=== PATIENT | female | born 1960 | race Caucasian/White ===

== ENCOUNTER 2018-09-27 23:19 | Emergency (ER) | payer BC ==
--- NOTE | 2018-09-27 23:39 | ER Document Report ---
ED General - General Stated Complaint: POSSIBLE SNAKE BITE Time Seen by Provider: 09/27/18 23:37 Notes: Patient is a 58-year-old female who presents with complaint of a snake bite to the left ankle. Patient says it happened just prior to arrival to the ED. They did bring a picture of the snake. It was an adult copperhead per the picture that they brought. Patient complains of pain in the ankle and foot only. No pain into the leg. Patient has no further complaints this time. She was given fentanyl for her ankle pain by the paramedics. No vomiting. No fever. No dizziness. Past Medical History - Social History Smoking Status: Unknown if Ever Smoked Frequency of alcohol use: None Drug Abuse: None Family History: Reviewed & Not Pertinent Review of Systems - Review of Systems Notes: My Normal Review Basic REVIEW OF SYSTEMS: CONSTITUTIONAL : Denies fever, chills, or sweats. Denies recent illness. RESPIRATORY: Denies cough, cold, or chest congestion. Denies shortness of breath, difficulty breathing, or wheezing. GASTROINTESTINAL: Denies abdominal pain. Denies nausea, vomiting, or diarrhea. MUSCULOSKELETAL: Left ankle and foot pain. SKIN: Denies rash or skin lesions. NEUROLOGICAL: Denies altered mental status or loss of consciousness. Denies headache. Denies weakness or paralysis or loss of use of either side. Denies problems with gait or speech. Denies sensory or motor loss. ALL OTHER SYSTEMS REVIEWED AND NEGATIVE. Physical Exam - Vital signs Vitals: Resp Pulse Ox 17 100 09/27/18 23:46 09/27/18 23:46 - Notes Notes: General Appearance: Well nourished, alert, cooperative, no acute distress, mild to moderate obvious discomfort. Vitals: reviewed, See vital signs table. Eyes: PERRL, EOMI, Conjuctiva clear Mouth: No decreasd moisture Lungs: No wheezing, No rales, No rhonci, No accessory muscle use, good air exchange bilaterally. Heart: Normal rate, Regular rythm, No murmur, no rub Extremities: good pulses in all extremities, patient has 2 puncture wounds on the lateral aspect of the left ankle. She has some localized swelling to the left ankle and over the dorsum of the foot. No swelling or discoloration going into the leg itself. Good capillary refill. Good dorsal pulses. Skin: warm, dry, appropriate color, no rash Neuro: speech clear, oriented x 3, normal affect, responds appropriately to questions. Course - Re-evaluation Re-evalutation: 09/27/18 23:38 Patient does have a snake bite on the left lateral malleolus of the left ankle. They do a picture of the snake. It is a copperhead. The swelling is only a small amount swelling that is just localized to the lateral aspect of the left ankle. There is no swelling into the leg. No spreading erythema. At this time I have put her foot on blankets. She looks very comfortable. She received all the pain medicine from the paramedics and says she does not need for the pain medicine at this time. Currently I do not feel that the benefits of antivenom outweigh the risks of potential side effects such as anaphylaxis from antivenom administration. Currently we will continue to monitor her leg and keep it elevated. We will watch her for several hours to make sure that she does not develop increasing swelling. Patient is agreeable with plan. 09/28/18 01:25 On reevaluation the swelling is not progressed. Still localized mainly to the lateral malleolus. Leg does not appear to be swollen. She is having some recurrent pain therefore have ordered some pain medicine for her. 09/28/18 02:52 Patient's pain is well controlled. Her calf measurements have remained unchanged. The swelling in her foot and ankle is actually gone down since her last evaluation. Patient looks and feels well. 09/28/18 06:57 I did discuss the case with poison control at the 6-hour point of observation. They recommended observation for 8 hours from the time the bite. Is not been 8 hours since the time of bite. Patient continues to does have localized swelling to the foot and ankle. No swelling into the leg. She will have some pain that shoots up her leg when she moves her foot but otherwise no swelling and no discoloration to the leg. I talked the patient about risks and benefits antivenom. I recommended incentive enemas I did not feel that the risk of anaphylaxis it was worth the benefit for just the small amount of localized swelling being that she was not having swelling that was increasing in size and it was not progressing up the leg. I did discuss with poison control and agreeable as well. This is long as patient is able to have pain control and that the swelling was not increasing to the leg and her calf measurements have been the same she can be discharged home. Calf measurements have remained the same. I did give her crutches. I did talk about pain control did offer to admit her for pain control. Patient says she would rather try to stay at home first as opposed to being admitted for pain control. I informed her that she may still have some slight increase in swelling over the next 24 hours; however, if the swelling started to go into the lower leg and extend beyond the ankle then she must return to the ER immediately. I informed her to keep her leg elevated above the waist. I did have Poison Control Center me a copy of their snake bite discharge instructions. I did give this to the patient in conjunct ion with the discharge instructions like typed up. Patient is agreeable plan is that she would return if she had any worsening of her pain, uncontrolled pain, increasing swelling, fevers, or if she felt like she is worsening in any way. Dictation of this chart was performed using voice recognition software; therefore, there may be some unintended grammatical errors. - Vital Signs Vital signs: Temp Pulse Resp BP Pulse Ox 98.2 F 12 149/83 H 100 09/28/18 05:06 09/28/18 05:03 09/28/18 05:06 09/28/18 05:03 - Laboratory Result Diagrams: 09/27/18 23:05 09/27/18 23:05 Laboratory results interpreted by me: 09/27/18 09/27/18 23:05 23:05 Hgb 11.4 L Hct 34.5 L RDW 17.4 H Calcium 8.3 L Alkaline Phosphatase 141 H Discharge - Discharge Clinical Impression: Snake bite Qualifiers: Encounter type: initial encounter Qualified Code(s): W59.11XA - Bitten by nonvenomous snake, initial encounter Condition: Good Disposition: HOME, SELF-CARE Instructions: Oral Narcotic Medication ([facility]) Additional Instructions: Treatment for the snakebite going forward is pain control with oral pain medicine as well as keeping her foot elevated. Please stay in bed as much as possible or on a couch and keep her foot elevated above the level of your waist. Please return to ER immediately if you have increasing swelling going into the leg, is intractable pain, or if you feel like you are worsening in any way. Also provided a set of care instructions that have been provided to us by the Poison Control Center. It also mentions comes to watch for. Please make sure you use her crutches to your not applying weight on your foot. I did give the poison control center your phone number and they will be calling you to check up on you later today. Prescriptions: Oxycodone HCl [Oxy-Ir 5 mg Tablet] 5 mg PO Q4HP PRN #20 tab PRN Reason: Forms: Return to Work
[2018-09-27 23:59] LABS: ABSOLUTE EOSINOPHILS # (AUTO) 0.1 10^3/uL (0.0-0.6); ABSOLUTE LYMPHOCYTES (AUTO) 1.7 10^3/uL (0.5-4.7); ABSOLUTE MONOCYTES (AUTO) 0.5 10^3/uL (0.1-1.4); BASOPHILS % (AUTO) 0.8 % (0-2); EOSINOPHILS % (AUTO) 2.2 % (0-6); HEMATOCRIT 34.5 % (36.0-47.0); HEMOGLOBIN 11.4 g/dL (12.0-15.5); LYMPHOCYTES % (AUTO) 38.5 % (13-45); MEAN CORPUSCULAR HEMOGLOBIN 27.4 pg (27.0-33.4); MEAN CORPUSCULAR HGB CONC 32.9 g/dL (32.0-36.0); MEAN CORPUSCULAR VOLUME 83 fl (80-97); MONOCYTES % (AUTO) 11.2 % (3-13); PLATELET COUNT 287 10^3/uL (150-450); RED BLOOD COUNT 4.15 10^6/uL (3.72-5.28); RED CELL DISTRIBUTION WIDTH 17.4 % (11.5-14.0); SEGMENTED NEUTROPHILS % (AUTO) 47.3 % (42-78); TOTAL CELLS COUNTED % (AUTO) 100 %; WHITE BLOOD COUNT 4.3 10^3/uL (4.0-10.5)
[2018-09-28 00:03] LABS: INTERNATIONAL RATION (INR) 0.89
[2018-09-28 00:04] LABS: FIBRINOGEN 360 mg/dL (209-497)
[2018-09-28 00:13] LABS: ALANINE AMINOTRANSFERASE 26 U/L (9-52); ALBUMIN 4.1 g/dL (3.5-5.0); ALKALINE PHOSPHATASE 141 U/L (38-126); ANION GAP 7 (5-19); ASPARTATE AMINO TRANSFERASE 29 U/L (14-36); BILIRUBIN,DIRECT 0.2 mg/dL (0.0-0.4); BILIRUBIN,TOTAL 0.2 mg/dL (0.2-1.3); BLOOD UREA NITROGEN 13 mg/dL (7-20); CALCIUM 8.3 mg/dL (8.4-10.2); CARBON DIOXIDE 28 mmol/L (22-30); CHLORIDE 104 mmol/L (98-107); GLUCOSE 92 mg/dL (75-110); POTASSIUM 4.3 mmol/L (3.6-5.0); SODIUM 139.1 mmol/L (137-145); TOTAL PROTEIN 6.6 g/dL (6.3-8.2)
[2018-09-28 00:16] LABS: PARTIAL THROMBOPLASTIN TIME 29.3 SEC (23.5-35.8)
[2018-09-28] MEDS ORDERED: HYDROMORPHONE HCL INJ/PF 2 MG/ML AMPULE IV ONE ×2 (00:51→04:45)
[2018-09-28] MEDS ORDERED: OXYCODONE-ACETAMINOPHEN 5-325 MG TABLET PO ONE (04:53)
[2018-09-28] MEDS ORDERED: HYDROCODONE/ACETAMINOPHEN 5-325 MG (6 TAB/ER DISP) PO PRN (06:32)
[2018-09-28 06:35] VITALS: BP 149/83
== END 2018-09-28 07:05 | disposition home or self-care (01) ==
LOC: ER 23:19
DX: T63.091A Toxic effect of venom of other snake, accidental (unintentional), initial encounter (principal); M25.572 Pain in left ankle and joints of left foot; M79.672 Pain in left foot; M25.472 Effusion, left ankle; M79.89 Other specified soft tissue disorders
CPT/HCPCS: 99283; 96374; 36415; 85025; 85384; 85610; 85730; 80053; J1170

== ENCOUNTER 2019-03-06 09:03 | Day surgery (SDC) | payer BC ==
[~2019-03-06 09:03] MED LIST: PROPOFOL INJ 200 MG/20 ML VIAL IV ONE
[2019-03-06 10:54] VITALS: BP 127/73
--- NOTE | 2019-03-06 13:50 | Operative Report ---
Operative Report DATE OF SURGERY: 03/06/19 Operative Report: The risks benefits and alternatives of the procedure explained to the patient in detail and informed consent is obtained.A GIF Olympus video scope was inserted into the patient's mouth and hypopharynx, the esophagus is identified intubated and insufflated, the scope was then advanced through the esophagus stomach and duodenum, retroflexion maneuver is done, the esophagus stomach and first and second portions of the duodenum examined PREOPERATIVE DIAGNOSIS: Dysphagia POSTOPERATIVE DIAGNOSIS: Schatzki's ring status post breakage. Hiatal hernia. Gastritis status post biopsy rule out Helicobacter pylori OPERATION: EGD with biopsy SURGEON: CHANDA OCAMPO ANESTHESIA: LMAC TISSUE REMOVED OR ALTERED: As noted above. COMPLICATIONS: None. ESTIMATED BLOOD LOSS: None. INTRAOPERATIVE FINDINGS: As noted above. PROCEDURE: Patient tolerated the procedure well. No immediate postprocedure complications are noted. Patient is discharged in good condition. Discharge date 03/06/2019. Discharge diet: Regular. Discharge activity: Regular. 2 to 3-week follow-up to discuss findings. Patient is instructed to call the office or proceed to the emergency room should there be any further problems or questions. Wait on the pathology.
== END 2019-03-06 11:00 | disposition home or self-care (01) ==
LOC: END 09:03
PROVIDERS: ATTEND Internal Medicine Gastroenterology
DX: K22.2 Esophageal obstruction (principal); K44.9 Diaphragmatic hernia without obstruction or gangrene; K29.50 Unspecified chronic gastritis without bleeding; K20.9 Esophagitis, unspecified; Z87.891 Personal history of nicotine dependence; Z79.899 Other long term (current) drug therapy; E07.9 Disorder of thyroid, unspecified; G89.4 Chronic pain syndrome; D70.8 Other neutropenia; M35.9 Systemic involvement of connective tissue, unspecified; Q89.2 Congenital malformations of other endocrine glands
CPT/HCPCS: 43239; 88342 ×2; 88305 ×2; 00731; J2704; 731

== ENCOUNTER → 2019-03-17 | Outpatient (CLI) | payer BC ==
--- NOTE | 2019-03-17 14:12 | WOMENS IMAGING REPORT ---
EXAM DESCRIPTION: BONE DENSITY HIP/SPINE COMPLETED DATE/TIME: 03/17/2019 1:22 pm REASON FOR STUDY: M81.0 BONE DENSITY M81.0 AGE-RELATED OSTEOPOROSIS W/O CURRENT PATHOLOGICAL FRAC Z 12.31 ENCNTR SCREEN MAMMOGRAM FOR MALIGNANT NEOPLASM OF PHUC COMPARISON: None. TECHNIQUE: Dual-Energy X-ray Absorptiometry (DEXA) of the AP Spine and Hip. LIMITATIONS: None. FINDINGS: LUMBAR SPINE: The bone mineral density (BMD) measured from L1-L4 in the AP projection correlates with a T-score of -2.3, which is osteopenia as defined by the World Health Organization. BMD Change vs Baseline: N/A HIP: The bone mineral density (BMD) measured in the left hip correlates with a T-score of -3.2 in the femo ral neck, which is osteoporosis as defined by the World Health Organization. BMD Change vs Baseline: N/A 10 year Fracture Risk Assessment: Major Osteoporotic Fracture: Not available. Hip Fracture: Not available. IMPRESSION: 1. LUMBAR SPINE WHO CLASSIFICATION: Osteopenia 2. HIP WHO CLASSIFICATION: Osteoporosis OVERALL ASSESSMENT: WHO CLASSIFICATION: Osteoporosis COMMENT: The World Health Organization defines low BMD as follows: T-score: Normal: Greater than -1.0 Osteopenia: Between -1.0 and -2.5 Osteoporosis: Less than -2.5 without fractures Established osteoporosis: Less than -2.5 with fractures In general, you may wish to consider: Diagnosis Treatment Follow-up DEXA Normal BMD Prevention 2-3 years Osteopenia Prevention/Therapy 1-2 years Osteoporosis Therapy Yearly TECHNICAL DOCUMENTATION: JOB ID: [id number] [employer]- All Rights Reserved Reading location - IP/workstation name: [email or web address]
--- NOTE | 2019-03-17 15:31 | WOMENS IMAGING REPORT ---
EXAM DESCRIPTION: BILAT SCREENING MAMMO W/CAD COMPLETED DATE/TIME: 03/17/2019 1:22 pm REASON FOR STUDY: Z. SCREENING MAMMO M81.0 AGE-RELATED OSTEOPOROSIS W/O CURRENT PATHOLOGICAL FR AC Z. ENCNTR SCREEN MAMMOGRAM FOR MALIGNANT NEOPLASM OF PHUC COMPARISON: New baseline EXAM PARAMETERS: Standard craniocaudal and mediolateral oblique views of each breast recorded using digital acquisition. Read with the assistance of CAD. .[facility] - R2 Telephone Directory Distributor Driver Version 9.2 LIMITATIONS: None. FINDINGS: No suspicious masses, suspicious calcifications or architectural distortion. No areas of c oncern. IMPRESSION: Negative MAMMOGRAM. BIRADS 1 BREAST DENSITY: b. There are scattered areas of fibroglandular density. BIRAD: ASSESSMENT: 1 NEGATIVE RECOMMENDATION: ROUTINE SCREENING Please continue yearly bilateral screening mammography/tomosynthesis in February 2020 COMMENT: The patient has been notified of the results by letter per MQSA requirements. Additional no tification policies are in place for contacting patient with suspicious or incomplete findings. Quality ID #[id number]: The [employer] recommends an annual screening mammogram for women aged 40 years or over. This facility utilizes a reminder system to ensure that all patients receive reminder letters, and/or direct phone calls for appointments. This includes reminders for routine scr eening mammograms, diagnostic mammograms, or other Breast Imaging Interventions when appropriate. Th is patient will be placed in the appropriate reminder system. TECHNICAL DOCUMENTATION: FINDING NUMBER: (1) ASSESSMENT: (1) JOB ID: [id number] [employer]- All Rights Reserved Reading location - IP/workstation name: [email or web address]
== END ==
LOC: WI 12:45
PROVIDERS: ATTEND Family Medicine
DX: Z12.31 Encounter for screening mammogram for malignant neoplasm of breast (principal); M81.0 Age-related osteoporosis without current pathological fracture
CPT/HCPCS: 77067; 77080

== ENCOUNTER → 2019-03-18 | Outpatient (CLI) | payer BC ==
--- NOTE | 2019-03-18 12:40 | RADIOLOGY REPORT (SQ) ---
EXAM DESCRIPTION: NM WHOLE BODY BONE SCAN COMPLETED DATE/TIME: 03/18/2019 12:02 pm REASON FOR STUDY: M81.0 AGE-RELATED OSTEOPOROSIS W/O CURRENT PATHOLOGICAL FRACTURE, D32.9 M81.0 AGE -RELATED OSTEOPOROSIS W/O CURRENT PATHOLOGICAL FRAC D32.9 BENIGN NEOPLASM OF MENINGES, UNSPECIFIED COMPARISON: No available imaging studies for comparison. RADIONUCLIDE AND DOSE: 20 millicuries Tc99m HDP. The route of agent administration: Intravenous. ADDITIONAL DRUGS AND DOSES: None. TECHNIQUE: Routine delayed images at 3 hours post radionuclide injection acquired of the bony skelet on including anterior and posterior whole-body projections and additional focused images as needed. LIMITATIONS: None. FINDINGS: BONES: There is large area of increased uptake in the frontal bone. There is increased up take in 2 contiguous ribs on the right. KIDNEYS: Symmetric excretion without obstruction. OTHER: No other significant finding. IMPRESSION: Cannot exclude bone metastases. COMMENT: Quality measure 147: No available prior imaging studies for comparison TECHNICAL DOCUMENTATION: JOB ID: [id number] [employer]- All Rights Reserved Reading location - IP/workstation name: [email or web address]
--- NOTE | 2019-03-18 14:52 | RADIOLOGY REPORT (SQ) ---
EXAM DESCRIPTION: MRI HEAD COMBO COMPLETED DATE/TIME: 03/18/2019 10:05 am REASON FOR STUDY: M81.0 AGE-RELATED OSTEOPOROSIS W/O CURRENT PATHOLOGICAL FRACTURE, D32.9 M81.0 AGE -RELATED OSTEOPOROSIS W/O CURRENT PATHOLOGICAL FRAC D32.9 BENIGN NEOPLASM OF MENINGES, UNSPECIFIED COMPARISON: None. TECHNIQUE: Multiplanar imaging includes noncontrasted T1, T2, FLAIR, diffusion with ADC map and post gadolinium contrast T1 sequences. Images stored on PACS. CONTRAST TYPE AND DOSE: 15 mL Dotarem. RENAL FUNCTION: Not indicated. ACR Type II contrast agent associated with few, if any, unconfounded cases of NSF LIMITATIONS: None. FINDINGS: ANATOMY: No anomalies. Normal vascular flow voids. Pituitary fossa normal. CSF SPACES: Normal in size and contour. No hemorrhage. CEREBRUM: Sulci and gyri normal in size and contour. Normal white matter signal on FLAIR imaging. No evidence of hemorrhage or extra-axial fluid collection. 19.5 by 12.0 x 12.0 mm AP by transverse by c raniocaudal diameter homogeneous enhancing extra-axial lesion left frontal lobe abutting the falx. POSTERIOR FOSSA: No signal alteration. No hemorrhage. No edema, masses, or mass effect. Internal luz tory canals, cerebellopontine angles, mastoids normal. No enhancing lesions. No abnormal enhancement post contrast. DIFFUSION IMAGING: Negative for acute or subacute infarction. ORBITS: No masses. Globes normal. PARANASAL SINUSES: No fluid levels. Mucosa normal. OTHER: No other significant finding. IMPRESSION: Left frontal lobe meningioma. EVIDENCE OF ACUTE STROKE: NO. TECHNICAL DOCUMENTATION: JOB ID: [id number]- All Rights Reserved Reading location - IP/workstation name: [email or web address]
== END ==
LOC: RAD 08:23
PROVIDERS: ATTEND Family Medicine
DX: M81.0 Age-related osteoporosis without current pathological fracture (principal); D32.9 Benign neoplasm of meninges, unspecified; D32.0 Benign neoplasm of cerebral meninges
CPT/HCPCS: 70553; 78306; A9576; A9561; Q9969

== ENCOUNTER → 2019-04-08 | Outpatient (CLI) | payer BC | LOC: RAD 07:51 | PROVIDERS: ATTEND Family Medicine | DX: R94.8 Abnormal results of function studies of other organs and systems (principal) | CPT/HCPCS: 78803; A9561; Q9969 ==

== ENCOUNTER 2019-05-18 20:37 | Emergency (ER) | payer BC ==
--- NOTE | 2019-05-18 21:26 | ER Document Report ---
ED Medical Screen (RME) - General Chief Complaint: Pain All Over Stated Complaint: REPORTS MUSCLE CRAMPS Time Seen by Provider: 05/18/19 21:15 Primary Care Provider: JACLYN DON DO [Primary Care Provider] - Follow up as needed TRAVEL OUTSIDE OF THE [place] IN LAST 30 DAYS: No - HPI Notes: 05/18/19 21:23 59-year-old female to the emergency department with complaints of numbness and tingling to her hands chest around her mouth this been going on for several days as well as muscle cramping in her hands legs and all over her body. She states that she had her thyroid out and then has been experiencing trouble with her parathyroid. She states that she has had to recently go on osteoporosis medicine and she thinks that that might be affecting her calcium levels. She states that she also is having exertional shortness of breath. She states that anytime she tries to climb the stairs in her home she is very short of breath. She denies thierno chest pain but endorses more of a numbness and tingling across her chest. She states that she is taking a supplement for her thyroid but she also has been experiencing racing heart symptoms. I performed a brief medical screening exam on the patient determined that the patient needs further evaluation and management by main side provider. I have placed initial orders to help expedite care. - Related Data Allergies/Adverse Reactions: No Known Allergies Allergy (Verified 05/18/19 21:07) Past Medical History - Past Medical History Cardiac Medical History: Denies: Hx Coronary Artery Disease, Hx Heart Attack - HEART RACES AT TIMES, Hx Hypertension Pulmonary Medical History: Reports: Hx Bronchitis Denies: Hx Asthma, Hx COPD, Hx Pneumonia Neurological Medical History: Reports: Hx Migraine. Denies: Hx Cerebrovascular Accident, Hx Seizures - MENINGIOMA Renal/ Medical History: Denies: Hx Peritoneal Dialysis Musculoskeltal Medical History: Reports Hx Arthritis - Immunizations Hx Diphtheria, Pertussis, Tetanus Vaccination: No Physical Exam - Vital signs Vitals: Temp Pulse Resp BP Pulse Ox 98.0 F 112 H 16 151/83 H 95 05/18/19 20:46 05/18/19 20:46 05/18/19 20:46 05/18/19 20:46 05/18/19 20:46 Course - Vital Signs Vital signs: Temp Pulse Resp BP Pulse Ox 98.0 F 112 H 16 151/83 H 95 05/18/19 20:46 05/18/19 20:46 05/18/19 20:46 05/18/19 20:46 05/18/19 20:46 Doctor's Discharge - Discharge Referrals: JACLYN DON DO [Primary Care Provider] - Follow up as needed
--- NOTE | 2019-05-18 22:24 | RADIOLOGY REPORT (SQ) ---
EXAM DESCRIPTION: XR CHEST 2 VIEWS COMPLETED DATE/TME: 05/18/2019 21:22 CLINICAL HISTORY: 59 years, Female, exertional SOB COMPARISON: None. NUMBER OF VIEWS: 2 TECHNIQUE: 2 views of the chest LIMITATIONS: None. FINDINGS: The heart size is normal. Minimal scarring left lung base. Osteopenia. No pneumothorax. Lungs clear IMPRESSION: No acute cardiopulmonary process copyright 2010 [employer]- All Rights Reserved
[2019-05-18 22:39] LABS: ABSOLUTE EOSINOPHILS # (AUTO) 0.2 10^3/uL (0.0-0.6); ABSOLUTE LYMPHOCYTES (AUTO) 1.2 10^3/uL (0.5-4.7); ABSOLUTE MONOCYTES (AUTO) 0.6 10^3/uL (0.1-1.4); ABSOLUTE NEUT (AUTO) 5.2 10^3/uL (1.7-8.2); BASOPHILS % (AUTO) 0.6 % (0-2); EOSINOPHILS % (AUTO) 2.9 % (0-6); HEMATOCRIT 29.5 % (36.0-47.0); HEMOGLOBIN 9.5 g/dL (12.0-15.5); LYMPHOCYTES % (AUTO) 16.6 % (13-45); MEAN CORPUSCULAR HGB CONC 32.3 g/dL (32.0-36.0); MEAN CORPUSCULAR VOLUME 74 fl (80-97); MONOCYTES % (AUTO) 8.8 % (3-13); PLATELET COUNT 450 10^3/uL (150-450); RED BLOOD COUNT 3.97 10^6/uL (3.72-5.28); RED CELL DISTRIBUTION WIDTH 16.9 % (11.5-14.0); SEGMENTED NEUTROPHILS % (AUTO) 71.1 % (42-78); TOTAL CELLS COUNTED % (AUTO) 100 %; WHITE BLOOD COUNT 7.3 10^3/uL (4.0-10.5)
[2019-05-18 22:57] LABS: ALBUMIN 3.9 g/dL (3.5-5.0); ALKALINE PHOSPHATASE 104 U/L (38-126); ANION GAP 13 (5-19); ASPARTATE AMINO TRANSFERASE 26 U/L (14-36); BILIRUBIN,DIRECT 0.3 mg/dL (0.0-0.4); BILIRUBIN,TOTAL 0.3 mg/dL (0.2-1.3); BLOOD UREA NITROGEN 17 mg/dL (7-20); CARBON DIOXIDE 24 mmol/L (22-30); CHLORIDE 101 mmol/L (98-107); GLUCOSE 95 mg/dL (75-110); PHOSPHORUS 7.2 mg/dL (2.5-4.5); POTASSIUM 4.6 mmol/L (3.6-5.0); TOTAL PROTEIN 6.5 g/dL (6.3-8.2)
[2019-05-18 23:09] LABS: NT PRO BNP 286 pg/mL (<125)
--- NOTE | 2019-05-18 23:11 | EKG REPORT ---
SEVERITY:- NORMAL ECG - SINUS RHYTHM : Confirmed by: Rafael Pathak 18-May-2019 23:11:06
[2019-05-18 23:14] LABS: CALCIUM 5.6 mg/dL (8.4-10.2)
[2019-05-18 23:27] LABS: TROPONIN I < 0.012 ng/mL
[2019-05-18] MEDS ORDERED: CALCIUM GLUCONATE 1000 MG/10 ML INJ IV ONE (23:47)
--- NOTE | 2019-05-18 23:48 | ER Document Report ---
ED General - General Chief Complaint: General Weakness Stated Complaint: REPORTS MUSCLE CRAMPS Time Seen by Provider: 05/18/19 21:15 Primary Care Provider: JACLYN GRIMES DO [Primary Care Provider] - Follow up as needed Notes: 59-year-old female presents emergency department complaining of 1 to 2 weeks of muscle cramps and 1 day of tingling of her face and chest. Patient is concerned that her calcium may be low, she has had hypocalcemia before. Patient started taking her Fosamax weekly in March, states that the symptoms have been progressing since then. Patient denies any nausea or vomiting, denies any chrissy rrhea. 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 She takes calcium 3 tablets daily of oyster shell calcium. TRAVEL OUTSIDE OF THE [place] IN LAST 30 DAYS: No - Related Data Allergies/Adverse Reactions: No Known Allergies Allergy (Verified 05/18/19 21:07) Past Medical History - General Information source: Patient - Social History Smoking Status: Never Smoker Frequency of alcohol use: None Drug Abuse: None Family History: Reviewed & Not Pertinent Patient has suicidal ideation: No Patient has homicidal ideation: No - Past Medical History Cardiac Medical History: Denies: Hx Coronary Artery Disease, Hx Heart Attack - HEART RACES AT TIMES, Hx Hypertension Pulmonary Medical History: Reports: Hx Bronchitis Denies: Hx Asthma, Hx COPD, Hx Pneumonia Neurological Medical History: Reports: Hx Migraine. Denies: Hx Cerebrovascular Accident, Hx Seizures - MENINGIOMA Renal/ Medical History: Denies: Hx Peritoneal Dialysis Musculoskeletal Medical History: Reports Hx Arthritis - Immunizations Hx Diphtheria, Pertussis, Tetanus Vaccination: No Review of Systems - Review of Systems Constitutional: No symptoms reported EENT: No symptoms reported Musculoskeletal: See HPI - Muscle cramps. Neurological/Psychological: See HPI - Facial tingling and chest tingling. -: Yes All other systems reviewed and negative Physical Exam - Vital signs Vitals: Temp Pulse Resp BP Pulse Ox 98.0 F 112 H 16 151/83 H 95 05/18/19 20:46 05/18/19 20:46 05/18/19 20:46 05/18/19 20:46 05/18/19 20:46 Interpretation: Hypertensive, Tachycardic - Notes Notes: GENERAL: Alert, interacts well. No acute distress. HEAD: Normocephalic, atraumatic EYES: Pupils equal, round and reactive to light, extraocular movements intact. ENT: Oral mucosa moist, tongue midline. NECK: Full range of motion, supple, trachea midline. LUNGS: Clear to auscultation bilaterally, no wheezes, rales or rhonchi, no respiratory distress. HEART: Regular rate and rhythm, no murmurs, gallops, rubs. ABDOMEN: Soft, nontender, nondistended, bowel sounds present in all 4 quadrants. EXTREMITIES: Moves all 4 extremities spontaneously, no edema, radial and dorsalis pedis pulses 2/4 bilaterally. No cyanosis. NEUROLOGICAL: Alert and oriented x3, normal speech, biceps and patellar DTRs 2+ bilaterally, no clonus. No tetany with the blood pressure cuff. PSYCH: Normal mood, normal affect. SKIN: Warm, Dry, normal turgor, no rashes or lesions noted. Course - Re-evaluation Re-evalutation: 05/19/19 00:58 CBC shows anemia with a hemoglobin of 9.5, patient is aware of this, gets iron infusions as needed, CMP shows markedly low calcium at 5.6, ionized calcium is 0.73, phosphorus is elevated at 7.2, troponin negative, TSH is elevated 11.6. P atient is aware that she has an elevated TSH. Will discuss this with her primary care physician Dr. Grimes who manages her thyroid replacement therapy. Chest X-Ray 05/18/19 21:22 IMPRESSION: No acute cardiopulmonary process copyright 2011 [employer]- All Rights Reserved EKG does not show any delays or arrhythmias. Patient is on the monitor. Patient's tachycardia has resolved. Patient will be discharged home on oral calcium at an increased dose and instructed to stop taking the alendronate sodium after the IV calcium has finished. 05/19/19 01:15 Patient still has no tetany, still has no arrhythmias, no symptomatic relief at this point however her symptoms are not severe enough to need to be hospitalized. Patient will be discharged home on a double dose of oral calcium. She is agreeable to this plan. - Vital Signs Vital signs: Temp Pulse Resp BP Pulse Ox 98.0 F 112 H 16 151/83 H 95 05/18/19 20:46 05/18/19 20:46 05/18/19 20:46 05/18/19 20:46 05/18/19 20:46 - Laboratory Result Diagrams: 05/18/19 22:20 05/18/19 22:20 Laboratory results interpreted by me: 05/18/19 05/18/19 05/18/19 22:20 22:20 22:20 Hgb 9.5 L Hct 29.5 L MCV 74 L MCH 24.0 L RDW 16.9 H Est GFR (MDRD) Non-Af 58 L Calcium 5.6 L* Ionized Calcium Mariel Phosphorus 7.2 H NT-Pro-B Natriuret Pep 286 H TSH 05/18/19 05/19/19 22:22 00:01 Hgb Hct MCV MCH RDW Est GFR (MDRD) Non-Af Calcium Ionized Calcium Mariel 0.73 L Phosphorus NT-Pro-B Natriuret Pep TSH 11.60 H - EKG Interpretation by Me Additional EKG results interpreted by me: 05/18/19 23:47 EKG shows sinus rhythm at a rate of 91, normal axis, normal intervals, no ST segment elevation or depression, no T wave inversions per my interpretation. Discharge - Discharge Clinical Impression: Hypocalcemia, Hyperphosphatemia Condition: Stable Disposition: HOME, SELF-CARE Additional Instructions: Please stop taking your alendronate sodium. Please double your dose of oyster shell calcium from 3 pills a day to 6 pills a day. If you develop diarrhea you may use MiraLAX 1 scoop daily as needed to create soft stools. Please follow-up with Dr. Grimes as an outpatient to further adjust her calcium and your thyroid replacement medication as needed. Referrals: JACLYN GRIMES DO [Primary Care Provider] - Follow up as needed
[2019-05-19 01:24] VITALS: BP 106/60
== END 2019-05-19 01:30 | disposition home or self-care (01) ==
LOC: ER 20:37
DX: E83.51 Hypocalcemia (principal); E83.39 Other disorders of phosphorus metabolism; R25.2 Cramp and spasm; R20.2 Paresthesia of skin; E89.0 Postprocedural hypothyroidism; Z79.899 Other long term (current) drug therapy
CPT/HCPCS: 93005; 99284; 96374; 36415; 83735; 84100; 84443; 85025; 80053; 84484; 82330; 83880; 71046; 93010; J0610

== ENCOUNTER 2019-05-27 08:26 | Outpatient (CLI) | payer BC ==
[2019-05-27] MEDS ORDERED: NORMAL SALINE 250 ML @ KVO IV PRN (08:47)
[2019-05-27] MEDS: CALCIUM GLUCONATE 1 GM/NS 50 ML RTU IV SCH ×2 (09:07→10:09)
[2019-05-27 09:16] VITALS: BP 142/65
== END 2019-05-27 11:40 | disposition home or self-care (01) ==
LOC: II 08:26 → 5TH 08:40 → II 11:40
PROVIDERS: ATTEND Internal Medicine Hematology & Oncology
DX: E83.51 Hypocalcemia (principal)
CPT/HCPCS: 96365; 96366; J0610

== ENCOUNTER 2019-05-30 07:36 | Outpatient (CLI) | payer BC ==
[~2019-05-30 07:36] MED LIST changes: +NORMAL SALINE 250 ML IV PRN; -PROPOFOL INJ 200 MG/20 ML VIAL IV ONE
[2019-05-30 07:54] VITALS: BP 146/79
[2019-05-30] MEDS: CALCIUM GLUCONATE 1 GM/NS 50 ML RTU IV SCH ×2 (08:17→09:19)
== END 2019-05-30 10:32 | disposition home or self-care (01) ==
LOC: II 07:36 → 5TH 07:38 → II 10:32
PROVIDERS: ATTEND Internal Medicine Hematology & Oncology
DX: E83.51 Hypocalcemia (principal)
CPT/HCPCS: 96365; 96366; J0610

== ENCOUNTER → 2019-06-03 | Outpatient (CLI) | payer BC ==
--- NOTE | 2019-06-03 12:55 | RADIOLOGY REPORT (SQ) ---
EXAM DESCRIPTION: KNEE LEFT 4 VIEW COMPLETED DATE/TIME: 06/03/2019 10:03 am REASON FOR STUDY: BILATERAL KNEE PAIN (M25.562, M25.561) M25.562 PAIN IN LEFT KNEE M25.561 PAIN IN RIGHT KNEE COMPARISON: None. NUMBER OF VIEWS: Four views. TECHNIQUE: AP, lateral, and both oblique radiographic images acquired of the left knee. LIMITATIONS: None. FINDINGS: MINERALIZATION: Osteopenia. BONES: No acute fracture or dislocation. No worrisome bone lesions. JOINT: Moderate severe narrowing patellofemoral compartment of the knee. No effusion. SOFT TISSUES: No soft tissue swelling. No radio-opaque foreign body. OTHER: No other significant finding. IMPRESSION: 1. 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 Osteopenia. 2. No acute osseous findings. TECHNICAL DOCUMENTATION: JOB ID: [id number] 2010 [employer]- All Rights Reserved Reading location - IP/workstation name: [email or web address]
--- NOTE | 2019-06-03 12:57 | RADIOLOGY REPORT (SQ) ---
EXAM DESCRIPTION: KNEE RIGHT 4 VIEWS COMPLETED DATE/TIME: 06/03/2019 10:03 am REASON FOR STUDY: BILATERAL KNEE PAIN (M25.562, M25.561) M25.562 PAIN IN LEFT KNEE M25.561 PAIN IN RIGHT KNEE COMPARISON: None. NUMBER OF VIEWS: Four views. TECHNIQUE: AP, lateral, and both oblique radiographic images acquired of the right knee. LIMITATIONS: None. FINDINGS: MINERALIZATION: Osteopenia. BONES: No acute fracture or dislocation. No worrisome bone lesions. JOINT: Moderate severe narrowing patellofemoral compartment of the knee. SOFT TISSUES: No soft tissue swelling. No radio-opaque foreign body. OTHER: No other significant finding. IMPRESSION: 1. Osteopenia. Degenerative moderate severe arthritic changes patellofemoral compartme nt of the knee. 2. No acute osseous findings. TECHNICAL DOCUMENTATION: JOB ID: [id number] 2010 [employer]- All Rights Reserved Reading location - IP/workstation name: [email or web address]
== END ==
LOC: RAD 09:00
PROVIDERS: ATTEND Family Medicine
DX: M17.0 Bilateral primary osteoarthritis of knee (principal); M25.562 Pain in left knee; M25.561 Pain in right knee

== ENCOUNTER → 2019-06-18 | Outpatient (CLI) | payer BC ==
--- NOTE | 2019-06-18 12:44 | RADIOLOGY REPORT (SQ) ---
EXAM DESCRIPTION: CT HEAD WITHOUT COMPLETED DATE/TIME: 06/18/2019 9:39 am REASON FOR STUDY: (D32.0)BENIGN NEOPLASM OF CEREBRAL MENINGES D32.0 BENIGN NEOPLASM OF CEREBRAL MEN INGES COMPARISON: MR 03/18/2019 TECHNIQUE: Axial images acquired through the brain without intravenous contrast. Images reviewed wi th bone, brain and subdural windows. Additional sagittal and coronal reconstructions were generated. Images stored on PACS. All CT scanners at this facility use dose modulation, iterative reconstruction, and/or weight based d osing when appropriate to reduce radiation dose to as low as reasonably achievable (ALARA). [facility]: Dose Right [facility]: CareDose [facility]: Dose Right [facility]: Teradose 4D [facility]: Smart [place] RADIATION DOSE: CT Rad equipment meets quality standard of care and radiation dose reduction techniq ues were employed. CTDIvol: 48.7 mGy. DLP: 955 mGy-cm. mGy. LIMITATIONS: None. FINDINGS: VENTRICLES: Normal size and contour. CEREBRUM: Small left parafalcine frontal meningioma. This shows no significant change. There is no hemorrhage or infarction. Normal feldman/white matter differentiation. No areas of low density in the wh ite matter. CEREBELLUM: No masses. No hemorrhage. No alteration of density. No evidence for acute infarction. EXTRAAXIAL SPACES: No fluid collections. No masses. ORBITS AND GLOBE: No intra- or extraconal masses. Normal contour of globe without masses. CALVARIUM: No fracture. PARANASAL SINUSES: No fluid or mucosal thickening. SOFT TISSUES: No mass or hematoma. OTHER: No other significant finding. IMPRESSION: Stable small left parafalcine frontal meningioma. EVIDENCE OF ACUTE STROKE: NO. COMMENT: Quality ID # [id number]: Final reports with documentation of one or more dose reduction techniques (e.g., Automated exposure control, adjustment of the mA and/or kV according to patient size, use of iterative reconstruction technique) TECHNICAL DOCUMENTATION: JOB ID: [id number] 2010 [employer]- All Rights Reserved Reading location - IP/workstation name: [email or web address]
== END ==
LOC: RAD 09:27
PROVIDERS: ATTEND Family Medicine
DX: D32.0 Benign neoplasm of cerebral meninges (principal)
CPT/HCPCS: 70450